=== PATIENT | female | born 1970 | race Caucasian/White ===

== ENCOUNTER → 2018-01-08 | Outpatient (CLI) | payer OTHER ==
[2018-01-08 12:23] LABS: BASOPHILS # (AUTO) 0.1 10^3/uL (0.0-0.1); BASOPHILS % (AUTO) 0.9 %; EOSINOPHILS # (AUTO) 0.1 10^3/uL (0.0-0.7); EOSINOPHILS % (AUTO) 1.4 %; HGB - HEMOGLOBIN 14.1 g/dL (12.0-16.0); LYMPHOCYTES # (AUTO) 1.4 10^3/uL (1.5-3.5); LYMPHOCYTES % (AUTO) 23.3 %; MEAN CORPUSCULAR HEMOGLOBIN 31.2 pg (27.0-31.0); MEAN CORPUSCULAR HGB CONC 34.6 g/dL (32.0-36.0); MEAN CORPUSCULAR VOLUME 90.1 fL (81.0-99.0); MEAN PLATELET VOLUME 9.6 fL (7.9-10.8); MONOCYTES # (AUTO) 0.4 10^3/uL (0.0-1.0); NEUTROPHILS # (AUTO) 4.2 10^3/uL (1.5-6.6); NEUTROPHILS % (AUTO) 67.4 %; PLT - PLATELET COUNT 293 10^3/uL (130-450); RED BLOOD COUNT 4.51 10^6/uL (4.20-5.40); RED CELL DISTRIBUTION WIDTH 12.9 % (12.0-15.0); WHITE BLOOD COUNT 6.2 x10^3/uL (4.8-10.8)
[2018-01-08 12:52] LABS: CALCIUM 9.6 mg/dL (8.5-10.3); CARBON DIOXIDE - CO2 26 mmol/L (21-32); CHLORIDE 101 mmol/L (101-111); GLUCOSE 125 mg/dL (70-100); SODIUM 136 mmol/L (135-145)
[2018-01-08 12:56] LABS: THYROID STIMULATING HORMONE 1.9 uIU/mL (0.34-5.60)
[2018-01-08 13:03] LABS: ALBUMIN 4.9 g/dL (3.2-5.5); ALBUMIN/GLOBULIN RATIO 1.8 (1.0-2.2); ALKALINE PHOSPHATASE 60 IU/L (42-121); ALT ALANINE AMINOTRANSFERASE 50 IU/L (10-60); AST ASPARTATE AMINOTRANSFERASE 43 IU/L (10-42); BILIRUBIN,TOTAL 0.9 mg/dL (0.2-1.0); BUN - BLOOD UREA NITROGEN 11 mg/dL (6-20); CHOL/HDL RATIO 5.6 (<4.4); CHOLESTEROL 202 mg/dL; CREATININE 0.3 mg/dL (0.4-1.0); GFR - MDRD 239 (>89); HDL CHOLESTEROL 36 mg/dL; LDL CHOLESTEROL,CALCULATED 120 mg/dL; LDL/HDL RATIO 3.3 (<4.4); TOTAL PROTEIN 7.7 g/dL (6.7-8.2); VLDL CHOLESTEROL 46 mg/dL
[2018-01-08 13:20] LABS: HCG,QUALITATIVE BLOOD NEGATIVE
== END ==
LOC: LAB.WCP 09:27
PROVIDERS: ATTEND Family Medicine
DX: R94.5 Abnormal results of liver function studies (principal); I10 Essential (primary) hypertension; E78.1 Pure hyperglyceridemia; N92.4 Excessive bleeding in the premenopausal period
CPT/HCPCS: 36415; 80053; 80061; 82728; 83721; 84443; 84703; 85025

== ENCOUNTER 2018-02-05 08:06 | Outpatient (CLI) | payer OTHER ==
--- NOTE | 2018-02-05 10:54 | Ultrasound Report ---
Reason: DYSFUNCTIONAL UTERINE BLEEDING Procedure Date: 02/05/2018 Accession Number: [id number] / [id number] Procedure: US - Pelvic w/Transvaginal CPT Code: FULL RESULT: EXAM: PELVIC ULTRASOUND EXAM DATE: 02/05/2018 09:41 AM. CLINICAL HISTORY: DYSFUNCTIONAL UTERINE BLEEDING. COMPARISON: None. TECHNIQUE: Realtime transabdominal pelvic scan performed to identify the uterus and adnexa and as an overview of other pelvic structures, followed by transvaginal scan to provide greater detail of the uterus and adnexa, with static image documentation. FINDINGS: Uterus: By 5.5 x 9.1 cm, volume 285 cc. Anteverted position. Normal overall size and echotexture. Masses: Submucosal 2.1 x 1.8 x 1.1 cm fibroid. Endometrium: Up to 16 mm as measured on image 76 series 2. Appearance suggestive of secretory phase. Measurement is top normal. Cervix: Unremarkable. Right Ovary: 6.2 x 4.2 x 5.2 cm, volume 8 cc. Complex 3.7 x 4.2 x 3.6 cm cyst Left Ovary: 3.3 x 2.8 x 2.8 cm, volume 14 cc. Visualized and transabdominal fashion only, grossly normal. Free Fluid: None. Other: None. IMPRESSION: Submucosal fibroid, this can be associated with dysfunctional uterine bleeding. Top normal endometrium for thickness without visualization of a polyp. RADIA The above findings of a submucosal fibroid and top normal endometrium were discussed with Annetta Ruelas by Dr. Howard Ashton at 10:52 hrs on 02/05/18.
== END 2018-02-05 08:07 | disposition home or self-care (01) ==
LOC: DI 08:06
PROVIDERS: ATTEND Family Medicine
DX: N92.4 Excessive bleeding in the premenopausal period (principal); D25.0 Submucous leiomyoma of uterus
CPT/HCPCS: 76830; 76856

== ENCOUNTER 2018-03-29 14:56 | Outpatient (CLI) | payer OTHER ==
[2018-03-29] MEDS ORDERED: IOVERSOL 320 100 ML VIAL IVP ONE ×2 (15:05→15:39)
--- NOTE | 2018-03-29 16:05 | CT Report ---
Reason: PULMONARY NODULE Procedure Date: 03/29/2018 Accession Number: [id number] / [id number] Procedure: CT - Chest W/ CPT Code: FULL RESULT: EXAM: CT CHEST EXAM DATE: 03/29/2018 03:25 PM. CLINICAL HISTORY: Pulmonary nodule. COMPARISONS: CT chest 08/18/2010. TECHNIQUE: Routine helical CT imaging was performed through the chest. IV contrast: 80 mL Optiray 320. Reconstructions: Coronal and sagittal. In accordance with CT protocol optimization, one or more of the following dose reduction techniques were utilized for this exam: automated exposure control, adjustment of mA and/or KV based on patient size, or use of iterative reconstructive technique. FINDINGS: Lungs/Pleura: The previously seen 3 mm nodule in the left lower lobe peripherally is now seen on image 20 of series 3, benign with no further follow-up required. 3 mm right upper lobe nodule image 29 series 3, stable compared to 2011 and therefore benign with no follow-up required. Mediastinum: Normal. No adenopathy or masses. The heart and great vessels are normal. Bones: Unremarkable. Visualized Abdomen: Hepatic steatosis. Other: None. IMPRESSION: This exam establishes 7-year stability of lung nodules with no new nodules identified. No further follow-up is required for lung nodules. Hepatic steatosis. RADIA
== END 2018-03-29 14:57 | disposition home or self-care (01) ==
LOC: DI 14:56
PROVIDERS: ATTEND Family Medicine
DX: J98.4 Other disorders of lung (principal); R91.8 Other nonspecific abnormal finding of lung field; K76.0 Fatty (change of) liver, not elsewhere classified
CPT/HCPCS: 71260; Q9967

== ENCOUNTER 2018-04-01 10:10 | Outpatient (CLI) | payer OTHER ==
[2018-04-01 10:42] LABS: BASOPHILS % (AUTO) 0.7 %; EOSINOPHILS # (AUTO) 0.1 10^3/uL (0.0-0.7); EOSINOPHILS % (AUTO) 1.1 %; HGB - HEMOGLOBIN 14.9 g/dL (12.0-16.0); LYMPHOCYTES % (AUTO) 27.4 %; MEAN CORPUSCULAR HEMOGLOBIN 31.8 pg (27.0-31.0); MEAN CORPUSCULAR HGB CONC 35.4 g/dL (32.0-36.0); MEAN CORPUSCULAR VOLUME 89.9 fL (81.0-99.0); MEAN PLATELET VOLUME 8.7 fL (7.9-10.8); MONOCYTES # (AUTO) 0.7 10^3/uL (0.0-1.0); MONOCYTES % (AUTO) 9.5 %; NEUTROPHILS # (AUTO) 4.5 10^3/uL (1.5-6.6); NEUTROPHILS % (AUTO) 61.3 %; PLT - PLATELET COUNT 248 10^3/uL (130-450); RED BLOOD COUNT 4.68 10^6/uL (4.20-5.40); RED CELL DISTRIBUTION WIDTH 12.6 % (12.0-15.0); WHITE BLOOD COUNT 7.3 x10^3/uL (4.8-10.8)
== END 2018-04-01 10:11 | disposition home or self-care (01) ==
LOC: LAB 10:10
PROVIDERS: ATTEND Obstetrics & Gynecology
DX: D25.0 Submucous leiomyoma of uterus (principal); N81.11 Cystocele, midline; N93.9 Abnormal uterine and vaginal bleeding, unspecified
CPT/HCPCS: 36415; 85025

== ENCOUNTER 2018-04-03 09:15 | Day surgery (SDC) | payer OTHER ==
--- NOTE | 2018-04-01 11:34 | PREOP HISTORY & PHYSICAL ---
DATE OF SERVICE: 04/03/2018 Physician: Will Bustillos MD DIAGNOSES 1. Menorrhagia with anemia. 2. Small submucosal leiomyoma. 3. Benign endometrial biopsy, secretory phase. INTENDED PROCEDURE: Hysteroscopy with possible MyoSure myomectomy, followed by NovaSure endometrial ablation. HISTORY OF PRESENT ILLNESS: Patient is a 48-year-old multigravida, who is status post section, who notes menorrhagia and has gushing flow for 4 days of every menses that saturate her pads. She is left exhausted by her heavy menses, and this is a personal and work issue. She underwent an endometrial biopsy that showed a secretory endometrium without endometritis or hyperplasia. Ultrasound documents a 1.6 submucosal fibroid. The patient has no discharge, pelvic pressure or abdominal pain. She has always had heavy menses, and she believes they are worsening. She declines norethindrone/Provera suppression trial. PAST MEDICAL HISTORY: Hypertension, controlled with labetalol. No history of diabetes or prediabetes. PAST SURGICAL HISTORY: C-sections x2, tonsillectomy, wisdom tooth extraction. ALLERGIES: PENICILLIN IN CHILDHOOD, RASH. MEDICATIONS 1. Mini-dose aspirin. 2. Tumeric. 3. Labetalol. SOCIAL HISTORY: Denies drug, tobacco, or alcohol use. FAMILY HISTORY: Negative. REVIEW OF SYSTEMS CONSTITUTIONAL: Negative. CARDIOVASCULAR: Negative. RESPIRATORY: Negative. No asthmatic symptoms. GASTROINTESTINAL: Negative. GENITOURINARY: Reference HPI. MUSCULOSKELETAL: Negative. NEUROLOGIC: Negative. PSYCHIATRIC: Negative. PHYSICAL EXAMINATION GENERAL: Well groomed, pleasant. VITAL SIGNS: Posted. HEENT: Supple neck. No thyromegaly. Dentition in good repair. BREASTS: Symmetric. No mass, discharge, or lymphadenopathy. LUNGS: Clear. CARDIAC: Regular. No murmur. No gallop. ABDOMEN: Slightly overweight. No organomegaly. No tenderness. EXTERNAL GENITALIA: No lesions. Normal vagina. Grade 1- cystocele, no incontinence on cough. Cervix - no lesions. No cervical motion tenderness. Uterus slightly retroflexed, mildly enlarged, 5 to 6-week size. Adnexae - no mass, no tenderness. Normal size ovaries. NEUROLOGIC: Grossly intact. MUSCULOSKELETAL: Normal range of motion. No joint tenderness or swelling. SKIN: The patient still has a bruise from previous blood draw last week. She is taking tumeric and aspirin. PREOPERATIVE LABORATORY DATA: Pending. ASSESSMENT: Patient is an appropriate candidate for myomectomy, combined with endometrial ablation and MyoSure. Generally myomas below 3 cm size respond well to NovaSure, and anticipate a good result. In preparation for surgery, she was warned to stop mini-dose aspirin and tumeric. PLAN: Hysteroscopic examination including myomectomy and NovaSure procedure. Complete informed consent session was conducted. Appropriate paperwork was signed. All questions were answered. TD: 04/01/2018 11:05 GAIL
--- NOTE | 2018-04-03 08:50 | OPERATIVE REPORT ---
Operative Report - General Planned Procedure: Hysteroscopy with NovaSure endometrial ablation; possible hysteroscopic gerard Pre-Op Diagnosis: Menorrhagia, small leiomyoma Procedure Performed: Hysteroscopic myomectomy; NovaSure endometrial ablation; diagnostic hysteroscopy Post Op Diagnosis: Same as above, Await pathology - Procedure Note Primary Surgeon: Will Bustillos MD, FACOG, FICS Anesthesia Provider: Kim Foley, certified nurse dock builder Anesthesia Technique: Spinal Pathology: Myoma; endometrial shavings IV Fluids (mL): 700 Estimated Blood Loss (mL): 10 Urine Output (mL): 0 (Patient voided immediately prior to the surgery; not straight cath postop) Complications: None. - Other Other Information/Narrative: Prior to entering the OR, I met the patient in the preoperative holding room. We reviewed her informed consent. Our discussion included, mechanics of the procedures, intended benefits, risks /possible complications and alternatives. She is aware of the possibility of blood loss, transfusion, wound infection, damage to bowel, damage to bladder or urinary tract, Uterine perforation and postoperative pain. She understands that surgery may not remedy all of her problems and over time prolapse could develop. She understands that endometrial ablation does not guarantee amenorrhea but should result in significant improvement in uterine bleeding. All questions were reviewed and answered. Informed consent paperwork was signed. Patient's medical history and intended procedure was reviewed with anesthesiology and OR staff. Exam under anesthesia was performed. The [place] of the uterus was determined. A medium size Graves speculum was inserted into the vagina and the cervix was inadequately visualized. A longer Graves speculum was substituted. Single-tooth tenaculum was applied to the anterior cervical lip. The cervical the cervical axis was determined with fine Hegar probe. The endocervical canal was then gently dilated with serial application of Hegar probes to size 6. The video hysteroscope was calibrated and white balanced. The safety pump was primed and zeroed. The hysteroscope was then gently guided through the endocervical canal and towards the uterine cavity. Fluid irrigation through the hysteroscope provided clear visualization during the insertion process. The Utan safety hysteroscopy pump was used throughout the process maintaining a pressure of 56mm. The endocervical canal was stiff from prior cryotherapy and internal os was obstructed with a fibroid. Using the Myosure, the fibroid was systematically shaved and the internal loss opened to allow entry into the uterine cavity proper. Once inside of the uterus cavity, a systematic examination was conducted. Reference findings section and attached photos. Next the NovaSure endometrial ablation device was brought to the field. The uterus had previously sounded 13 cm. The NovaSure was introduced into the uterine cavity until fundal resistance was encountered. At that time, the NovaSure was deployed and the width measured 5.2 cm. 5.2 and 6.5 the maximal sounding distance was set into the NovaSure device . The NovaSure array was deployed and locked into place. Self-test functions passed. The NovaSure was then uneventfully fired. Post treatment hysteroscopy was done that confirmed desiccation of approximately 75% of the uterine endometrium. Cavity was flushed and photographed. At this point the NovaSure device and all other instruments were withdrawn. After the objectives were met, the hysteroscope was uneventfully withdrawn from the cavity. We confirmed that there was no significant hemorrhage. Single- tooth tenaculum was removed as well as Graves speculum. At this point we confirmed to that sponge needle and instrument count was correct. Total fluid deficit for the procedure = 250. FINDINGS 1. The external exam genitalia were examined and no concerning lesions were discovered. There was no evidence of genital trauma. The hiatus was 4 centimeters in diameter. The clitoris was of normal size. The distribution of pubic hair was normal. The urethra was was had a appropriate angle and of normal caliber. 2. Examination of the vagina found a normal rugated mucosa without evidence of lesions. There was no blood or discharge evident. Note the vagina had been prepped prior to examination. 3. Cervix was without significant cervicitis or visible plaques/lesions. There was no paracervical fullness. The endocervical canal was stiff from prior cryotherapy and distorted from leiomyoma. 4. Uterus was retroflexed and 6-7 wk size without evidence of . The contour the uterus was smooth.The endometrial cavity had a smooth and fluffy endometrium without vascular changes suggestive of hyperplasia or dysplasia. The interior was irregular from presumed fibroid effect. 5. Ovaries were of normal size; however patient size compromised physical examination.. 6. Rectal vaginal exam was not accomplishe
[~2018-04-03 09:15] MED LIST: DOCUSATE SODIUM 250 MG CAPSULE PO SCH; HYDROcod/ACETAM 5/325 MG TABLET PO PRN; LACTULOSE 10 GM /15 ML UDC PO SCH; ONDANSETRON 4 MG/2 ML VIAL IVP PRN
--- NOTE | 2018-04-03 09:21 | ANESTHESIA ---
Pre-Anesthesia VS, & Labs - Diagnosis Cystocele, Uterine fibroid, abnormal vaginal bleeding - Procedure Endometrial ablation Novasure - NPO >8 hours (Sip water with Atenolol) - Is Patient ?: No - Lab Results Lab results reviewed: Yes Home Medications and Allergies Home Medications: Ambulatory Orders Atenolol 50 mg PO DAILY 04/01/18 Turmeric Root Extract [Turmeric Curcumin] 500 mg PO DAILY 04/01/18 Active Medications Hydrocodone Bitart/Acetaminophen ([place] 5/325) 1 tab PO Q4HR PRN PRN Reason: PAIN Docusate Sodium (Colace 250mg Capsule) 250 mg PO DAILY DELBERT Ibuprofen (Motrin) 600 mg PO Q6HR DELBERT Lactulose (Enulose) 10 gm PO DAILY DELBERT Ondansetron HCl (Zofran Inj) 4 mg IVP Q6HR PRN PRN Reason: Nausea / Vomiting Atenolol 50 mg PO DAILY 04/01/18 Turmeric Root Extract [Turmeric Curcumin] 500 mg PO DAILY 04/01/18 Allergies/Adverse Reactions: Allergies Allergy/AdvReac Type Severity Reaction Status Date / Time Penicillins Allergy Rash Verified 04/01/18 10:03 Anes History & Medical History - Anesthetic History Anesthesia Complications: reports: No previous complications Family history of Anesthesia Complications: Denies Family history of Malignant Hyperthermia: Denies - Medical History Cardiovascular: reports: Hypertension Pulmonary: reports: None Gastrointestinal: reports: None Urinary: reports: None Neuro: reports: None Musculoskeletal: reports: None Endocrine/Autoimmune: reports: None Blood Disorders: reports: None Skin: reports: Eczema Smoking Status: Former smoker Psychosocial: reports: No issues indicated - Surgical History Eyes Ears Nose Throat (EENT): Tonsil/Adenoidectomy Gynecologic: section Exam General: Alert, Oriented x3 Dental: WNL Mouth Opening: Greater than 4 Fingerbreadths Neck Mobility: Normal Mallampati classification: I Thyromental Distance: greater than 6 cm Respiratory: Lungs clear Cardiovascular: Regular rate Neurological: Normal speech Mental/Cognitive Status: Alert/Oriented X3, Normal for patient Cognitive Status: Within normal limits Plan Anesthesia Type: General, Spinal Consent for Procedure(s) Verified and Reviewed: Yes Code Status: Attempt Resuscitation ASA classification: 2-Mild systemic disease Is this case an emergency?: No
[2018-04-03] MEDS ORDERED: LACTATED RINGERS 1,000 ML IV ONE ×3 (09:30→13:29)
[2018-04-03 09:36] LABS: HCG UR QUAL NEGATIVE
[2018-04-03] MEDS ORDERED: IBUPROFEN 600 MG TABLET PO SCH (10:00)
[2018-04-03] MEDS ORDERED: KETOROLAC 30 MG/ML VIAL IVP ONE (11:00)
[2018-04-03] MEDS ORDERED: MIDAZOLAM 2 MG/2 ML VIAL IVP ONE (11:00)
[2018-04-03] MEDS ORDERED: KETAMINE 500 MG/10 ML VIAL IVP ONE (11:00)
[2018-04-03] MEDS ORDERED: LIDOCAINE-MPF 2% 5 ML VIAL IM ONE (11:00)
[2018-04-03] MEDS ORDERED: ACETAMINOPHEN 1,000 MG/100 ML 100 ML IV ONE (11:00)
[2018-04-03] MEDS ORDERED: fentaNYL 100 MCG/2 ML VIAL IVP ONE (11:00)
--- NOTE | 2018-04-03 12:10 | Discharge Plan ---
Discharge Plan Disposition: 01 Home, Self Care Condition: Good Diet: Regular Activity Restrictions: Activity as Tolerated Shower Restrictions: No Driving Restrictions: No No Smoking: If you smoke, Please STOP! Call for help. Follow-up with: Will Bustillos MD [Provider Admit Priv/Credential] -
[2018-04-03 14:20] VITALS: BP 137/86
== END 2018-04-03 09:16 | disposition home or self-care (01) ==
LOC: SDS 09:15
PROVIDERS: ATTEND Obstetrics & Gynecology
PROC: 0U5B8ZZ Destruction of Endometrium, Via Natural or Artificial Opening Endoscopic (ICD-10-PCS; principal; 2018-04-03 10:30)
PROC: 0UB98ZZ Excision of Uterus, Via Natural or Artificial Opening Endoscopic (ICD-10-PCS; 2018-04-03 10:30)
DX: N92.0 Excessive and frequent menstruation with regular cycle (principal); D25.0 Submucous leiomyoma of uterus; D50.0 Iron deficiency anemia secondary to blood loss (chronic); I10 Essential (primary) hypertension; N81.10 Cystocele, unspecified
CPT/HCPCS: 58561; 58563; 81025; J0131; J7120

== ENCOUNTER 2019-05-01 08:15 | Outpatient (CLI) | payer OTHER ==
[2019-05-01 08:35] LABS: BASOPHILS % (AUTO) 0.8 %; EOSINOPHILS # (AUTO) 0.1 10^3/uL (0.0-0.7); EOSINOPHILS % (AUTO) 1.2 %; HGB - HEMOGLOBIN 14.3 g/dL (12.0-16.0); LYMPHOCYTES # (AUTO) 1.8 10^3/uL (1.5-3.5); MEAN CORPUSCULAR HEMOGLOBIN 31.4 pg (27.0-31.0); MEAN CORPUSCULAR HGB CONC 34.7 g/dL (32.0-36.0); MEAN CORPUSCULAR VOLUME 90.5 fL (81.0-99.0); MEAN PLATELET VOLUME 10.9 fL (7.9-10.8); MONOCYTES # (AUTO) 0.5 10^3/uL (0.0-1.0); MONOCYTES % (AUTO) 9.6 %; NEUTROPHILS # (AUTO) 2.6 10^3/uL (1.5-6.6); PLT - PLATELET COUNT 225 10^3/uL (130-450); RED BLOOD COUNT 4.55 10^6/uL (4.20-5.40); RED CELL DISTRIBUTION WIDTH 11.5 % (12.0-15.0); WHITE BLOOD COUNT 5.1 x10^3/uL (4.8-10.8)
[2019-05-01 08:53] LABS: ALBUMIN 4.7 g/dL (3.2-5.5); ALBUMIN/GLOBULIN RATIO 1.7 (1.0-2.2); ALKALINE PHOSPHATASE 55 IU/L (42-121); ALT ALANINE AMINOTRANSFERASE 37 IU/L (10-60); AST ASPARTATE AMINOTRANSFERASE 27 IU/L (10-42); BILIRUBIN,TOTAL 0.9 mg/dL (0.2-1.0); BUN - BLOOD UREA NITROGEN 18 mg/dL (6-20); CALCIUM 9.4 mg/dL (8.5-10.3); CARBON DIOXIDE - CO2 23 mmol/L (21-32); CHLORIDE 105 mmol/L (101-111); CHOLESTEROL 223 mg/dL; CREATININE 0.8 mg/dL (0.4-1.0); GFR - MDRD 77 (>89); GLUCOSE 131 mg/dL (70-100); HDL CHOLESTEROL 37 mg/dL; LDL CHOLESTEROL,CALCULATED 150 mg/dL; LDL/HDL RATIO 4.1 (<4.4); SODIUM 138 mmol/L (135-145); TOTAL PROTEIN 7.4 g/dL (6.7-8.2); VLDL CHOLESTEROL 36 mg/dL
== END 2019-05-01 08:16 | disposition home or self-care (01) ==
LOC: LAB 08:15
PROVIDERS: ATTEND Family Medicine
DX: I10 Essential (primary) hypertension (principal); E78.1 Pure hyperglyceridemia
CPT/HCPCS: 36415; 80053; 80061; 83721; 84443; 85025

== ENCOUNTER 2021-01-22 11:14 | Outpatient (CLI) | payer OTHER ==
--- NOTE | 2021-01-22 12:15 | Ultrasound Report ---
PROCEDURE: Pelvic w/Transvaginal INDICATIONS: DYSFUNCTIONAL UTERINE BLEEDING TECHNIQUE: Real-time scanning was performed of the pelvic organs, with image documentation. Additional endovagi nal scanning was necessary due to incomplete visualization of the adnexal and endometrial structures by transabdominal scanning. COMPARISON: 02/05/2018 FINDINGS: No pathologic free abdominal or pelvic fluid. Uterus: Uterus is prominent in size at 13.7 x 6.8 x 7.7 cm. [phone]). (). The endometrium measures 9 mm in combined thickness. Within the mid anterior uterus, there is a submucosal fibroid that measures 4.1 x 3.7 x 3.1 cm, which previously measured 2.1 x 1.8 x 1.1 cm. Nabothian cysts are incidentally noted. A complex cyst is se en posteriorly that measures up to 2 cm. A 5 mm cyst can also be seen at the scar. Ovaries: The right ovary measures 3.4 x 5.1 x 5.6 cm. Multiple cysts are seen within the right ovary that measure up to 3 cm. This largest cyst is septated. The left ovary is not seen. No adnexal masses are seen on either side. IMPRESSION: There is a growing submucosal fibroid seen measures up to 4.1 cm. The uterus is mildly enlarged. Uterine cysts are seen, including a complex 2 cm cyst posteriorly and a 5 mm cyst at the sc ar. Right ovarian cysts are seen, including a septated 3 cm cyst. Reviewed by: Ceferino Torres MD on 01/22/2021 11:13 AM [facility] Approved by: Ceferino Torres MD on 01/22/2021 11:13 AM [facility] Station ID: [id number]
== END 2021-01-22 11:15 | disposition home or self-care (01) ==
LOC: DI 11:14
PROVIDERS: ATTEND Obstetrics & Gynecology
DX: N92.4 Excessive bleeding in the premenopausal period (principal); D25.0 Submucous leiomyoma of uterus; N85.2 Hypertrophy of uterus; N85.8 Other specified noninflammatory disorders of uterus

== ENCOUNTER 2021-02-08 12:37 | Outpatient (CLI) | payer OTHER ==
[2021-02-08 13:07] LABS: BASOPHILS # (AUTO) 0.1 10^3/uL (0.0-0.1); BASOPHILS % (AUTO) 0.8 %; EOSINOPHILS # (AUTO) 0.1 10^3/uL (0.0-0.7); EOSINOPHILS % (AUTO) 1.1 %; HCT - HEMATOCRIT 39.7 % (37.0-47.0); HGB - HEMOGLOBIN 13.7 g/dL (12.0-16.0); LYMPHOCYTES # (AUTO) 2.4 10^3/uL (1.5-3.5); LYMPHOCYTES % (AUTO) 31.9 %; MEAN CORPUSCULAR HEMOGLOBIN 31.9 pg (27.0-31.0); MEAN CORPUSCULAR HGB CONC 34.5 g/dL (32.0-36.0); MEAN CORPUSCULAR VOLUME 92.5 fL (81.0-99.0); MEAN PLATELET VOLUME 10.2 fL (7.9-10.8); MONOCYTES # (AUTO) 0.6 10^3/uL (0.0-1.0); MONOCYTES % (AUTO) 8.4 %; NEUTROPHILS # (AUTO) 4.3 10^3/uL (1.5-6.6); NEUTROPHILS % (AUTO) 57.3 %; PLT - PLATELET COUNT 233 10^3/uL (130-450); RED BLOOD COUNT 4.29 10^6/uL (4.20-5.40); RED CELL DISTRIBUTION WIDTH 12.2 % (12.0-15.0); WHITE BLOOD COUNT 7.5 x10^3/uL (4.8-10.8)
== END 2021-02-08 12:38 | disposition home or self-care (01) ==
LOC: LAB 12:37
PROVIDERS: ATTEND Registered Nurse Diabetes Educator
DX: Z01.818 Encounter for other preprocedural examination (principal); N92.0 Excessive and frequent menstruation with regular cycle; D25.0 Submucous leiomyoma of uterus
CPT/HCPCS: 36415; 85025

== ENCOUNTER 2021-02-10 06:27 | Day surgery (SDC) | payer OTHER ==
[~2021-02-10 06:27] MED LIST changes: +ACETAMINOPHEN 1,000 MG/100 ML 100 ML IV ONE; +CELECOXIB 100 MG CAPSULE PO ONE; -DOCUSATE SODIUM 250 MG CAPSULE PO SCH; +GABAPENTIN 400 MG CAPSULE ONE; -HYDROcod/ACETAM 5/325 MG TABLET PO PRN; -LACTULOSE 10 GM /15 ML UDC PO SCH; -ONDANSETRON 4 MG/2 ML VIAL IVP PRN
[2021-02-10 06:47] LABS: HCG UR QUAL NEGATIVE
[2021-02-10] MEDS ORDERED: LACTATED RINGERS 1,000 ML IV ONE ×2 (07:06→09:09)
[2021-02-10] MEDS ORDERED: MIDAZOLAM 2 MG/2 ML VIAL ONE (07:09)
[2021-02-10] MEDS ORDERED: LIDOCAINE-MPF 2% 5 ML VIAL ONE (07:10)
[2021-02-10] MEDS ORDERED: fentaNYL 100 MCG/2 ML VIAL ONE (07:10)
[2021-02-10] MEDS ORDERED: PROPOFOL 200 MG/20 ML VIAL IVP ONE (07:10)
[2021-02-10] MEDS ORDERED: ATROPINE ABBOJECT 1 MG/10 ML SYRINGE IVP PRN (07:20)
[2021-02-10] MEDS ORDERED: ePHEDrine 50 MG/ML VIAL IVP PRN (07:20)
[2021-02-10] MEDS ORDERED: ONDANSETRON 4 MG/2 ML VIAL IVP PRN (07:20)
[2021-02-10] MEDS ORDERED: METOCLOPRAMIDE 10 MG/2 ML VIAL IVP PRN (07:20)
[2021-02-10] MEDS ORDERED: MORPHINE 2 MG/ML CARPUJECT IVP PRN (07:20)
[2021-02-10] MEDS ORDERED: fentaNYL 100 MCG/2 ML VIAL IVP PRN (07:20)
[2021-02-10] MEDS ORDERED: HYDROmorphone 0.5 MG/0.5 ML SYRINGE IVP PRN (07:20)
[2021-02-10] MEDS ORDERED: NALOXONE 0.4 MG/ML VIAL IVP PRN (07:20)
--- NOTE | 2021-02-10 07:24 | ANESTHESIA ---
Pre-Anesthesia VS, & Labs - Diagnosis menorrhagia submucosal uterine fibroid - Procedure Myomectomy with IUD insertion Vital Signs: Temp Pulse Resp BP Pulse Ox 36 C L 79 20 136/92 H 98 02/10/21 06:45 02/10/21 06:45 02/10/21 06:45 02/10/21 06:45 02/10/21 06:45 Height: 5 ft 5 in Weight (kg): 105.5 kg Body Mass Index: 38.7 BMI Classification: Obese - NPO >8 hours - Is Patient ?: No - Lab Results Current Lab Results: Laboratory Tests 02/10/21 07:02: POC Whole Bld Glucose 146 H Lab results reviewed: Yes Home Medications and Allergies Home Medications: Ambulatory Orders Acetaminophen [Tylenol] 650 mg PO Q6H PRN 02/04/21 Chlorthalidone 25 mg PO DAILY 02/04/21 Multivitamin 1 each PO DAILY 02/04/21 Nicotine Gum 2 mg PO QID 02/04/21 Triamcinolone Acetonide 0.1% [Triamcinolone Acetonide] 1 applic TP BID PRN 02/04/21 buPROPion HCL [Bupropion HCl] 100 mg PO DAILY 02/04/21 metFORMIN [Glucophage] 500 mg PO BIDWM 02/04/21 Active Medications Atropine Sulfate (Atropine Abboject 1 Mg/10 Ml Syringe) 0.5 mg IVP Q5M PRN PRN Reason: Bradycardia Stop: 02/11/21 07:20 Ephedrine Sulfate (Ephedrine 50 Mg/Ml Vial) 10 mg IVP Q5M PRN PRN Reason: HYPOTENSION Stop: 02/11/21 07:20 Fentanyl (Fentanyl 100 Mcg/2 Ml Vial) 25 - 50 mcg IVP Q5M PRN PRN Reason: BREAKTHROUGH PAIN (2nd Choice) Stop: 02/11/21 07:20 Hydromorphone HCl (Hydromorphone 0.5 Mg/0.5 Ml Syringe) 0.2 - 0.6 mg IVP Q5M PRN PRN Reason: PAIN (First Choice) Stop: 02/11/21 07:20 Lactated Ringer's (Lr) 1,000 mls @ 100 mls/hr IV .Q10H DELBERT Stop: 02/10/21 17:59 Metoclopramide HCl (Metoclopramide 10 Mg/2 Ml Vial) 10 mg IVP Q6HR PRN PRN Reason: N/V not relieved by Zofran Morphine Sulfate (Morphine 2 Mg/Ml Carpuject) 2 - 4 mg IVP Q5M PRN PRN Reason: PAIN (3rd Choice) Stop: 02/11/21 07:20 Naloxone HCl (Naloxone 0.4 Mg/Ml Vial) 0.1 mg IVP Q2M PRN PRN Reason: RESP RATE <8 Stop: 02/11/21 07:20 Ondansetron HCl (Ondansetron 4 Mg/2 Ml Vial) 4 mg IVP ONCE PRN PRN Reason: N/V (First Choice) Stop: 02/11/21 07:20 atenoloL [Atenolol] 50 mg PO DAILY 04/01/18 Acetaminophen [Tylenol] 650 mg PO Q6H PRN 02/04/21 Chlorthalidone 25 mg PO DAILY 02/04/21 Multivitamin 1 each PO DAILY 02/04/21 Nicotine Gum 2 mg PO QID 02/04/21 Triamcinolone Acetonide 0.1% [Triamcinolone Acetonide] 1 applic TP BID PRN 02/04 buPROPion HCL [Bupropion HCl] 100 mg PO DAILY 02/04/21 metFORMIN [Glucophage] 500 mg PO BIDWM 02/04/21 Allergies/Adverse Reactions: Allergies Allergy/AdvReac Type Severity Reaction Status Date / Time Penicillins Allergy Rash Verified 04/01/18 10:03 Anes History & Medical History - Anesthetic History Anesthesia Complications: reports: No previous complications Family history of Anesthesia Complications: Denies Family history of Malignant Hyperthermia: Denies - Medical History Cardiovascular: reports: Hypertension, High cholesterol Pulmonary: reports: None Gastrointestinal: reports: None Urinary: reports: None Neuro: reports: None Musculoskeletal: reports: None Endocrine/Autoimmune: reports: Other Blood Disorders: reports: None Skin: reports: Eczema Smoking Status: Former smoker - Surgical History Eyes Ears Nose Throat (EENT): reports: Tonsil/Adenoidectomy Gynecologic: reports: section, Endometrial ablation Exam General: Alert, Oriented x3, Cooperative, No acute distress Dental: WNL Mouth Openin Fingerbreadth Neck Mobility: Normal Mallampati classification: II Respiratory: Lungs clear, Normal breath sounds, No respiratory distress, No accessory muscle use Cardiovascular: Regular rate, Normal S1, Normal S2, No murmurs Plan Anesthesia Type: General Consent for Procedure(s) Verified and Reviewed: Yes Code Status: Attempt Resuscitation ASA classification: 2-Mild systemic disease Is this case an emergency?: No
[2021-02-10] MEDS ORDERED: LIDOCAINE MPF 2%-EPI 1:200000 20 ML VIAL ONE (07:35)
[2021-02-10] MEDS ORDERED: LIDOCAINE JELLY 2% 6 ML JEL.PF.APP ONE (07:35)
[2021-02-10] MEDS ORDERED: VASOPRESSIN 20 UNIT/ML VIAL ONE (07:35)
[2021-02-10] MEDS ORDERED: BUPIVACAINE 0.5% PF 10 ML VIAL ONE (07:35)
[2021-02-10] MEDS ORDERED: LEVONORGESTREL 20 MCG/24H IUD IY ONE ×2 (07:35→08:40)
[2021-02-10] MEDS ORDERED: LACTATED RINGERS 1,000 ML IV SCH (08:00)
[2021-02-10] MEDS ORDERED: ONDANSETRON 4 MG/2 ML VIAL ONE (08:31)
[2021-02-10] MEDS ORDERED: DEXAMETHASONE 4 MG/ML VIAL ONE (08:31)
[2021-02-10] MEDS ORDERED: PHENYLEPHRINE 10 MG/ML VIAL ONE (08:38)
[2021-02-10] MEDS ORDERED: LIDOCAINE MPF 2%-EPI 1:200000 20 ML VIAL SUBQ ONE (08:40)
[2021-02-10] MEDS ORDERED: BUPIVACAINE 0.5% PF 10 ML VIAL SUBQ ONE (08:40)
[2021-02-10] MEDS ORDERED: ePHEDrine 50 MG/ML VIAL IVP ONE (08:48)
[2021-02-10] MEDS ORDERED: oxyCODONE 5 MG TABLET PO PRN (09:20)
--- NOTE | 2021-02-10 09:30 | OPERATIVE REPORT ---
Operative Report - General Procedure Date: 02/10/21 Planned Procedure: Hysteroscopy with myomectomy and Mirena IUD placement Pre-Op Diagnosis: Dysfuntional uterine bleeding. Us with 4 cm submucosal fibroid Procedure Performed: Hysteroscopy D&C with Mirena IUD placement Post Op Diagnosis: Same, fibroid not visible through uterine cavity - Procedure Note Primary Surgeon: Shawanda Jeronimo MD Anesthesia Provider: Kobe Benson CRNA Anesthesia Technique: General LMA Pathology: uterine contents IV Fluids (mL): 800 Estimated Blood Loss (mL): 5 Urine Output (mL): 50 Indications: Patient is a 50 yo with ongoing DUB and a large submucosal fibroid noted on us here for preop evaluation for hysteroscopic myomectomy and IUD placement. Patient underwent hysteroscopic myomectomy and Novasure ablation with Dr. Bustillos in 2018l. Pelvic us at that time showed a submucosal fibroid of 2.8x1.3x1.1 cm. Pathology showed scant fragment of smooth muscle tissue c/w submucosal fibroid. Patient never achieved amenorrhea or significant drop in menstrual flow since the procedure. She continues to have cycles that are heavy, getting closer and lasting longer. She estimates that her cycles are every 23 days. She has heavy flow such that she is soaking clothing and has to miss work/events due to inconveniences. Pelvic us was performed on 01/22/21 and showed the following: "Uterus: Uterus is prominent in size at 13.7 x 6.8 x 7.7 cm. [phone]). 0. The endometrium measures 9 mm in combined thickness. Within the mid anterior uterus, there is a submucosal fibroid that measures 4.1 x 3.7 x 3.1. cm, which previously measured 2.1 x 1.8 x 1.1 cm. Nabothian cysts are incidentally noted. A complex cyst is seen posteriorly that measures up to 2 cm. A 5 mm cyst can also be seen at the scar. Ovaries: The right ovary measures 3.4 x 5.1 x 5.6 cm. Multiple cysts are seen within the right ovary that measure up to 3 cm. This largest cyst is septated." She would like to undergo hysteroscopic resection of the fibroid with Mirena IUD placement. She would like to avoid hysterectomy, if possible. Findings: Uterine cavity with thinned lining consistent with prior ablation. No evidence of submucosal fibroid. Bilateral tubal ostia noted. Cervix fixed high in vaginal vault. Complications: None - Other Other Information/Narrative: Risks benefits and alternatives to the procedure were reviewed. Consent was again confirmed. Patient was taken to the operating room where she underwent general anesthesia. She was positioned in dorsolithotomy position with legs resting in yellowfin stirrups. She was prepped and draped in the usual sterile fashion. Preoperative antibiotics were not indicated. Preoperative checklist was performed. Exam under anesthesia was performed. Speculum was placed in the vagina and the cervix was visualized. Single-tooth tenaculum was placed at the anterior cervical lip. Paracervical block was administered using a total of 20 cc of 1% lidocaine with epinephrine was injected at the 4:00 and 8:00 positions lateral to the portio of the cervix. The cervical os was serially dilated with Hegar dilators to accommodate the caliber of the diagnostic hysteroscope. Uterus sounded to 10 cm. The hysteroscope was inserted and findings were noted as above. The hysteroscopic morcellator was inserted through the operative port. D&C was performed with morcellator under direct visualization. Uterine cavity was smooth at close of the procedure. Hysteroscope was removed. Mirena IUD was inserted according to package instructions. Strings were trimmed to 3 cm. All instruments were removed from the uterus. Tenaculum was removed. Tenaculum sites were noted to be hemostatic. All instruments were removed from the vagina. Procedure was well- tolerated without complication. Fluid deficit: 650 cc
--- NOTE | 2021-02-10 10:02 | ANESTHESIA POST OP EVALUATION ---
Anesthesia Post Eval - Post Anesthesia Eval Vitals: Last Vital Signs Temp 37.4 C 02/10/21 09:43 Pulse 96 02/10/21 09:43 Resp 18 02/10/21 09:43 BP 130/77 02/10/21 09:43 Pulse Ox 95 02/10/21 09:43 CV Function Including HR & BP: Stable Pain Control: Satisfactory Nausea & Vomiting: Negative Mental Status: Baseline Respiratory Status: Airway Patent Hydration Status: Satisfactory Anesthesia Complications: None
[2021-02-10 10:03] VITALS: BP 126/71
== END 2021-02-10 06:28 | disposition home or self-care (01) ==
LOC: OR 06:27
PROVIDERS: ATTEND Obstetrics & Gynecology
PROC: 0UDB8ZZ Extraction of Endometrium, Via Natural or Artificial Opening Endoscopic (ICD-10-PCS; principal; 2021-02-10 07:30)
DX: N93.8 Other specified abnormal uterine and vaginal bleeding (principal); D25.0 Submucous leiomyoma of uterus; Z30.430 Encounter for insertion of intrauterine contraceptive device; N83.201 Unspecified ovarian cyst, right side; N84.0 Polyp of corpus uteri; N88.8 Other specified noninflammatory disorders of cervix uteri; I10 Essential (primary) hypertension; E66.9 Obesity, unspecified; R73.03 Prediabetes; Z68.38 Body mass index [BMI] 38.0-38.9, adult; Z79.84 Long term (current) use of oral hypoglycemic drugs; Z79.899 Other long term (current) drug therapy; Z87.891 Personal history of nicotine dependence
CPT/HCPCS: 81025

== ENCOUNTER 2021-07-18 12:13 | Outpatient (CLI) | payer OTHER ==
[2021-07-18 12:31] LABS: ESTIMATED AVERAGE GLUCOSE 111 mg/dL (70-100); HEMOGLOBIN A1c% 5.5 % (4.27-6.07)
[2021-07-18 12:41] LABS: ALBUMIN 4.7 g/dL (3.2-5.5); ALBUMIN/GLOBULIN RATIO 1.6 (1.0-2.2); ALKALINE PHOSPHATASE 57 IU/L (42-121); ALT ALANINE AMINOTRANSFERASE 71 IU/L (10-60); AST ASPARTATE AMINOTRANSFERASE 52 IU/L (10-42); BILIRUBIN,TOTAL 0.9 mg/dL (0.2-1.0); BUN - BLOOD UREA NITROGEN 13 mg/dL (6-20); CALCIUM 9.6 mg/dL (8.5-10.3); CARBON DIOXIDE - CO2 26 mmol/L (21-32); CHLORIDE 97 mmol/L (101-111); CHOLESTEROL 204 mg/dL; CREATININE 0.8 mg/dL (0.4-1.0); GFR - MDRD 76 (>89); GLUCOSE 121 mg/dL (70-100); HDL CHOLESTEROL 34 mg/dL; LDL CHOLESTEROL,CALCULATED 122 mg/dL; LDL/HDL RATIO 3.6 (<4.4); POTASSIUM 3.8 mmol/L (3.5-5.0); SODIUM 135 mmol/L (135-145); TOTAL PROTEIN 7.6 g/dL (6.7-8.2); TRIGLYCERIDES 240 mg/dL; VLDL CHOLESTEROL 48 mg/dL
== END 2021-07-18 12:14 | disposition home or self-care (01) ==
LOC: LAB 12:13
PROVIDERS: ATTEND Registered Nurse Diabetes Educator
DX: I10 Essential (primary) hypertension (principal); E88.81 Metabolic syndrome and other insulin resistance; E78.5 Hyperlipidemia, unspecified; K76.0 Fatty (change of) liver, not elsewhere classified
CPT/HCPCS: 36415; 80053; 80061; 83036; 83721

== ENCOUNTER 2023-04-18 14:54 | Emergency (ER) | payer OTHER ==
--- NOTE | 2023-04-18 15:00 | ED Physician Documentation ---
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 She stuck herself in the right fourth finger. States she is up-to-date on tetanus. PD PAST MEDICAL HISTORY - Past Medical History Cardiovascular: Hypertension, High cholesterol Respiratory: None Neuro: None Endocrine/Autoimmune: Other GI: None : None HEENT: Chronic vision loss Psych: None Musculoskeletal: None Derm: Eczema - Past Surgical History /[employer]: section, Endometrial ablation HEENT: Tonsil/Adenoidectomy - Present Medications Home Medications: Ambulatory Orders Medication Instructions Recorded Confirmed atenoloL [Atenolol] 50 mg PO DAILY 04/01/18 02/10/21 Acetaminophen [Tylenol] 650 mg PO Q6H PRN 02/04/21 02/10/21 Chlorthalidone 25 mg PO DAILY 02/04/21 02/10/21 Multivitamin 1 each PO DAILY 02/04/21 02/10/21 Nicotine Gum 2 mg PO QID 02/04/21 Triamcinolone Acetonide 0.1% 1 applic TP BID PRN 02/04/21 02/10/21 [Triamcinolone Acetonide] buPROPion HCL [Bupropion HCl] 100 mg PO DAILY 02/04/21 02/10/21 metFORMIN [Glucophage] 500 mg PO BIDWM 02/04/21 02/10/21 Acetaminophen [Acetaminophen Extra 1,000 mg PO Q8H PRN #60 tablet 02/10/21 Strength] Docusate Sodium 100Mg Capsule 100 - 200 mg PO BID PRN #60 cap 02/10/21 [Colace 100Mg Capsule] Ibuprofen [Motrin] 600 mg PO Q6H PRN #60 tab 02/10/21 oxyCODONE [Roxicodone] 2.5 - 5 mg PO Q4H PRN #12 tablet 02/10/21 - Allergies Allergies/Adverse Reactions: Allergies Allergy/AdvReac Type Severity Reaction Status Date / Time Penicillins Allergy Rash Verified 04/01/18 10:03 - Social History Smoking Status: Former smoker PD ED PE NORMAL - Vitals Vital signs reviewed: Yes - General General: Alert and oriented X 3, No acute distress - Extremities Extremities: Other (Tiny wound on the right fourth finger that is hemostatic) - Neuro Neuro: Alert and oriented X 3, Normal speech PD Medical Decision Making - ED course ED course: Employee health was already involved and had exposure panel ordered. She is u p-to-date on tetanus. They will also contact the source patient for testing. HIV prophylaxis was discussed and offered but declined. Departure - Departure Disposition: 01 Home, Self Care Clinical Impression: Needlestick injury accident with exposure to body fluid Instructions: ED Body Fluid Exp HC Worker Comments: Follow-up with [facility], he may order repeat blood-borne pathogen testing at time intervals depending on status of the source patient.
[2023-04-18 15:23] VITALS: BP 155/97; O2SAT 100
[2023-04-19 09:10] LABS: HCV AB Non Reactive (Non Reactive); HIV SCREEN 4TH GENERATION Non Reactive (Non Reactive)
== END 2023-04-18 15:27 | disposition home or self-care (01) ==
LOC: ED 14:54
DX: S61.214A Laceration without foreign body of right ring finger without damage to nail, initial encounter (principal); W46.0XXA Contact with hypodermic needle, initial encounter; Y92.531 Health care provider office as the place of occurrence of the external cause; Y99.0 Civilian activity done for income or pay; I10 Essential (primary) hypertension; Z87.891 Personal history of nicotine dependence
CPT/HCPCS: 86317; 86803; 87389; 99283